=== PATIENT | female | born 1990 | race Caucasian/White ===

== ENCOUNTER 2023-05-14 09:33 | Outpatient (CLI) | payer OTHER, SELFPAY ==
[2023-05-14 20:14] LABS: Basophils Absolute Auto 0.1 K/mm3 (0.0-0.1); Basophils Percent Auto 0.8 % (0.2-1.2); Eosinophils Absolute Auto 0.3 K/mm3 (0-0.3); Eosinophils Percent Auto 3.2 % (0-4.4); Hematocrit 43.7 % (37.0-47.0); Hemoglobin 13.7 g/dL (12.0-15.0); Immature Granulocyte Absolute 0.06 K/mm3 (0.00-0.031); Immature Granulocyte Percent A 0.8 % (0-0.5); Lymphocytes Absolute Auto 2.22 K/mm3 (0.9-3.2); Lymphocytes Percent Auto 28.1 % (18.3-44.2); Mean Corpuscular HGB Conc 31.4 g/dl (32-36); Mean Corpuscular Volume 95.8 fl (80-100); Mean Platelet Volume 12.2 fl (7.4-10.4); Monocytes Absolute Auto 0.6 K/mm3 (0.1-0.6); Neutrophils Absolute Auto 4.8 K/mm3 (1.3-6.7); Neutrophils Percent Auto 60.1 % (45.5-73.1); Platelet Count Result 246 k/mm3 (150-375); Red Blood Count 4.56 M/mm3 (4.2-5.4); White Blood Count 7.9 K/mm3 (4.5-10.0)
[2023-05-14 20:28] LABS: Alanine Aminotransferase 23 U/L (6-35); Albumin Level 4.6 g/dL (3.5-5.1); Alkaline Phosphatase 75 U/L (38-126); Anion Gap 8 mmol/L (8-16); Aspartate Amino Transferase 41 U/L (14-36); Bilirubin,Total 0.7 mg/dL (0.2-1.3); Blood Urea Nitrogen 21 mg/dL (7-17); Calcium 9.5 mg/dL (8.4-10.2); Carbon Dioxide 25 mmol/L (22-30); Chloride 105 mmol/L (98-107); Cholesterol 204 mg/dL (0-200); Estimated Glomerular Filt Rate > 60; Glucose 83 mg/dL (65-110); HDL Direct 50 mg/dL; Potassium 4.5 mmol/L (3.4-5.0); Sodium 138 mmol/L (137-145); Triglycerides 110 mg/dL (<150)
[2023-05-14 20:39] LABS: LDL Cholesterol Direct 110 mg/dL; Vitamin D 25 Hydroxy 43.5 ng/mL
[2023-05-16 13:32] LABS: DHEA-Sulfate 91 mcg/dL (23-266)
[2023-05-17 14:25] LABS: Progesterone 11.5 ng/mL (***)
[2023-05-17 19:24] LABS: Testosterone Free 2.6 pg/mL (0.1-6.4); Testosterone Total 17 ng/dL (2-45)
[2023-05-21 21:57] LABS: Estradiol, Ultrasensitive 72 pg/mL
== END 2023-05-14 09:34 | disposition home or self-care (01) ==
LOC: ANHBWCLAB 09:34
PROVIDERS: PCP Family Medicine; Visit Provider Family Medicine
DX: E03.9 Hypothyroidism, unspecified (principal); E66.9 Obesity, unspecified; F41.1 Generalized anxiety disorder; R68.82 Decreased libido; Z00.00 Encounter for general adult medical examination without abnormal findings; L65.9 Nonscarring hair loss, unspecified
CPT/HCPCS: 36415; 80053; 80061; 82306; 82627; 82670; 84144; 84402; 84403; 85025

== ENCOUNTER 2023-06-22 09:44 | Outpatient (CLI) | payer OTHER, SELFPAY ==
[2023-06-22 19:52] LABS: Alanine Aminotransferase 23 U/L (6-35); Albumin Level 4.3 g/dL (3.5-5.1); Alkaline Phosphatase 92 U/L (38-126); Aspartate Amino Transferase 66 U/L (14-36); Bilirubin,Total 0.7 mg/dL (0.2-1.3)
[2023-06-22 20:20] LABS: Hepatitis B Surface Antigen Negative (Negative)
[2023-06-22 20:26] LABS: HAV RESULT Negative (Negative); Hepatitis B Core IgM Result Negative (Negative)
[2023-06-22 20:38] LABS: Hepatitis C Virus Antibody Negative (Negative)
== END 2023-06-22 09:45 | disposition home or self-care (01) ==
LOC: ANHBWCLAB 09:45
PROVIDERS: PCP Family Medicine; Visit Provider Family Medicine
DX: R74.01 Elevation of levels of liver transaminase levels (principal)
CPT/HCPCS: 36415; 80074; 80076

== ENCOUNTER 2023-10-08 13:33 | Outpatient (CLI) | payer OTHER, SELFPAY | END 2023-10-08 13:34 | disposition home or self-care (01) | PROVIDERS: PCP Nurse Practitioner Adult Health; Visit Provider Family Medicine | DX: E03.9 Hypothyroidism, unspecified (principal) | CPT/HCPCS: 36415; 84443 ==

== ENCOUNTER 2025-01-06 11:50 | Outpatient (CLI) | payer OTHER, SELFPAY ==
[2025-01-06 20:19] LABS: Thyroid Stimulating Hormone 0.256 uIU/mL (0.465-4.680)
== END 2025-01-06 11:51 | disposition home or self-care (01) ==
LOC: ANHBWCLAB 11:51
PROVIDERS: PCP Nurse Practitioner Adult Health; Visit Provider Nurse Practitioner Adult Health
DX: E03.9 Hypothyroidism, unspecified (principal)
CPT/HCPCS: 36415; 84443

== ENCOUNTER 2025-03-04 13:34 | Outpatient (CLI) | payer OTHER, SELFPAY ==
--- OUTSIDE RECORDS SUMMARY | 2025-03-04 13:57 | XMS_ITS | Clinical Summary ---
Author Organization [facility] Address [address] [place] [address] Care Team Providers Care Dish Network Installer Name Role Phone Shubham Prescott MD Primary Care Provider [phone]- [phone] Source Comments [facility] [email or web address],non-owned Affiliates and Associated Physician Practices is amultiple site organization consisting of ambulatory clinics and hospital sitesin [place], [place], [place] and [place]. This disclosure is being madepursuant to the Care Everywhere program and may not contain all information available regarding this patient. Last updated 18.[facility] [email or web address] Allergies No known active allergies Medications * Be aware that medications may not be up to date on this document. Alwaysverify current medications with the patient. LEVOTHYROXINE SODIUM PO Active norethin-eth estradiol-FE (08/04) 1-20 MG-MCG tablet Take 1 tablet by mouth once daily Active Active Problems No known active problems Immunizations Immunization Administration Dates Next Due TDAP (7yrs+) 03/29/2016 Family History Medical History Relation Name Comments Diabetes Father Diabetes Paternal Grandmother Relation Name Status Comments Father Alive Maternal Grandfather Maternal Grandmother Alive Mother Alive Paternal Grandfather Alive Paternal Grandmother Alive Sister Alive Social History Tobacco Use Types Packs/Day Years Used Date Smoking Tobacco: Never Smokeless Tobacco: Never Alcohol Use Standard Drinks/Week Comments Yes 0 (1 standard drink = 0.6 oz pur e alcohol) ocass Comments No Sex and Gender Information Value Date Recorded Sex Assigned at Not on file 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 Gender Identity Not on file Sexual Orientation Not on file Occupation Industry Job Start Date Job End Date [employer] Not on file Not on file Not on f ile Last Filed Vital Signs Vital Sign Reading Time Taken Comments Blood Pressure 114/70 01/12/2021 12:19 PM CDT Pulse 74 01/12/2021 12:19 PM CDT Temperature 37 C (98.6 F) 01/12/2021 12:19 PM CDT Respiratory Rate 16 01/12/2021 12:19 PM CDT Oxygen Saturation 97% 01/12/2021 12:19 PM CDT Inhaled Oxygen Concentration - - Weight 74.8 kg (165 lb) 01/12/2021 12:19 PM CDT Height 154.9 cm (5' 1) 01/12/2021 12:19 PM CDT Body Mass Index 31.18 01/12/2021 12:19 PM CDT Plan of Treatment Health Maintenance Due Date Last Done Comments HIV SCREENING 2004 HEPATITIS C SCREENING 11/12/2007 HEPATITIS B VACCINE (1 of 3 - 19+ 3-dose series) 2008 HPV VACCINE (1 - 3-dose SCDM series) 2016 COVID-19 VACCINE (1 - 2023-2 5 season) 2024 DEPRESSION SCREENING 07/16/2024 INFLUENZA VACCINE (#1) 2025 DTAP/TDAP/TD VACCINES (2 - T d or Tdap) 03/29/2026 03/29/2016 ZOSTER VACCINE (1 of 2) 11/17/2039 HIB VACCINE Aged Out No longer eligi ble based on patient's age to complete this topic MENINGOCOCCAL (Group B) VACC INE SHARED DECISION-MAKING Aged Out No longer eligibl e based on patient's age to complete this topic MENINGOCOCCAL GROUPS A/C/Y/W VACCINE Aged Out No longer eligible b ased on patient's age to complete this topic PNEUMOCOCCAL VACCINE Aged Out No long er eligible based on patient's age to complete this topic Insurance [facility] Care Teams Dish Network Installer Relationship Specialty Start Date End Date Shubham Prescott MD [address] [place] [id number] PCP - General Family Medicine 01/12/21
--- OUTSIDE RECORDS SUMMARY | 2025-03-04 13:57 | XMS_ITS | Clinical Summary ---
Author Organization [facility] [place] [address] [facility] [address] Address [address] [place] [address] Care Team Providers Care Electromechanical Assembler Name Role Phone Reece Olivera MD Primary Care Provider [phone] [phone] Allergies No known active allergies Medications levothyroxine (SYNTHROID) 137 mcg tablet Take 1 tablet (137 mcg total) by mouth daily 05/02/2023 Active Active Problems No known active problems Surgical History Surgery Date Site/Laterality Comments NO PAST SURGERIES Medical History Medical History Date Comments Thyroid disease Social History Tobacco Use Types Packs/Day Years Used Date Smoking Tobacco: Never Assessed Comments No Sex and Gender Information Value Date Recorded Sex Assigned at Not on file Legal Sex Female 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 Gender Identity Not on file Sexual Orientation Not on file Obstetrics History Last Filed Vital Signs Vital Sign Reading Time Taken Comments Blood Pressure 106/62 06/09/2024 9:47 AM SELF SEALING FUEL TANK REPAIRER Pulse 96 06/09/2024 9:47 AM SELF SEALING FUEL TANK REPAIRER Temperature 36.8 C (98.2 F) 06/09/2024 9:47 AM SELF SEALING FUEL TANK REPAIRER Respiratory Rate 19 06/09/2024 9:47 AM SELF SEALING FUEL TANK REPAIRER Oxygen Saturation 97% 06/09/2024 9:47 AM SELF SEALING FUEL TANK REPAIRER Inhaled Oxygen Concentration - - Weight 83.2 kg (183 lb 6.4 oz) 06/09/2024 9:47 A M SELF SEALING FUEL TANK REPAIRER Height 154.9 cm (5' 1) 06/09/2024 9:47 AM SELF SEALING FUEL TANK REPAIRER Body Mass Index 34.65 06/09/2024 9:47 AM SELF SEALING FUEL TANK REPAIRER Plan of Treatment Health Maintenance Due Date Last Done Comments Cervical Cancer Screening 1989 Depression Screening 1989 Hepatitis C Screening 1989 Varicella Vaccines (1 of 2 - 13+ 2-dose series) 2002 Hepatitis B Screening 11/17/2007 Regular Well Visit/Exam 18-64 11/17/2007 HPV Vaccines (1 - 3-dose SCD M series) 2016 Influenza Vaccine (#1) 2025 DTaP/Tdap/Td Vaccine (2 - Td or Tdap) 03/29/2026 03/29/2016, 05/02/2005 Pneumococcal vaccine <65 Aged Out No longer eligible based on patient's age to complete this topic Insurance [facility] Care Teams Electromechanical Assembler Relationship Specialty Start Date End Date Reece Olivera MD PCP - General Family Practice 06/20/23
[2025-03-04 19:36] LABS: Thyroid Stimulating Hormone 1.510 uIU/mL (0.465-4.680)
== END 2025-03-04 13:35 | disposition home or self-care (01) ==
LOC: ANHBWCLAB 13:35
PROVIDERS: PCP Nurse Practitioner Adult Health; Visit Provider Nurse Practitioner Adult Health
DX: E03.9 Hypothyroidism, unspecified (principal)
CPT/HCPCS: 36415; 84443

== ENCOUNTER 2025-04-28 09:26 | Outpatient (CLI) | payer OTHER, SELFPAY ==
--- OUTSIDE RECORDS SUMMARY | 2025-04-28 10:36 | XMS_ITS | Clinical Summary ---
Author Organization [facility] Address [address] [address] [facility] [place] [address] Care Team Providers Care Turbine Assembler Name Role Phone Shubham Prescott MD Primary Care Provider [phone]- [phone] Source Comments [facility] [employer],non-owned Affiliates and Associated Physician Practices is amultiple site organization consisting of ambulatory clinics and hospital sitesin [place], [place], [place] and [place]. This disclosure is being madepursuant to the Care Everywhere program and may not contain all information available regarding this patient. 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 Care Teams Turbine Assembler Relationship Specialty Start Date End Date Shubham Prescott MD [address] [place] [phone] PCP - General Family Medicine 01/12/21
--- OUTSIDE RECORDS SUMMARY | 2025-04-28 10:36 | XMS_ITS | Clinical Summary ---
Author Organization [facility] [address] [facility] lt Address [address] [place] [address] Care Team Providers Care Joinery Machinist Name Role Phone Reece Olivera MD Primary Care Provider [phone] Allergies No known active allergies Medications levothyroxine [...] on file Legal Sex Female 12:19 PM RESTAURANT ATTENDANT Gender Identity Not on file Sexual Orientation Not on file Obstetrics History Last Filed Vital Signs Vital Sign Reading Time Taken Comments Blood Pressure 106/62 06/09/2024 9:47 AM RESTAURANT ATTENDANT Pulse 96 06/09/2024 9:47 AM RESTAURANT ATTENDANT Temperature 36.8 C (98.2 F) 06/09/2024 9:47 AM RESTAURANT ATTENDANT Respiratory Rate 19 06/09/2024 9:47 AM RESTAURANT ATTENDANT Oxygen Saturation 97% 06/09/2024 9:47 AM RESTAURANT ATTENDANT Inhaled Oxygen Concentration - - Weight 83.2 kg (183 lb 6.4 oz) 06/09/2024 9:47 A M RESTAURANT ATTENDANT Height 154.9 cm (5' 1) 06/09/2024 9:47 AM RESTAURANT ATTENDANT Body Mass Index 34.65 06/09/2024 9:47 AM RESTAURANT ATTENDANT Plan of Treatment Health Maintenance Due Date [...] patient's age to complete this topic Insurance [facility] Care Teams Joinery Machinist Relationship Specialty Start Date End Date Reece Olivera MD PCP - General Family Practice 06/20/23
[2025-04-28 18:52] LABS: Hematocrit 41.2 % (37.0-47.0); Hemoglobin 13.3 g/dL (12.0-15.0); Mean Corpuscular HGB Conc 32.3 g/dl (32-36); Mean Corpuscular Hemoglobin 30.4 pg (26-34); Mean Corpuscular Volume 94.1 fl (80-100); Platelet Count Result 270 k/mm3 (150-375); Red Blood Count 4.38 M/mm3 (4.2-5.4); White Blood Count 9.2 K/mm3 (4.5-10.0)
[2025-04-28 19:08] LABS: Alanine Aminotransferase 16 U/L (6-35); Albumin Level 4.2 g/dL (3.5-5.1); Alkaline Phosphatase 74 U/L (38-126); Anion Gap 6 mmol/L (4-12); Aspartate Amino Transferase 68 U/L (14-36); Bilirubin,Total 0.8 mg/dL (0.2-1.3); Blood Urea Nitrogen 20 mg/dL (7-17); Calcium 8.9 mg/dL (8.4-10.2); Carbon Dioxide 28 mmol/L (22-30); Chloride 103 mmol/L (98-107); Cholesterol 172 mg/dL (0-200); Estimated Glomerular Filt Rate > 60; Glucose 84 mg/dL (65-110); HDL Direct 39 mg/dL; Potassium 4.6 mmol/L (3.4-5.0); Sodium 137 mmol/L (137-145); Total Protein 7.4 g/dL (6.3-8.2); Triglycerides 103 mg/dL (<150)
[2025-04-28 19:43] LABS: Thyroid Stimulating Hormone 2.380 uIU/mL (0.465-4.680)
== END 2025-04-28 09:27 | disposition home or self-care (01) ==
PROVIDERS: PCP Nurse Practitioner Adult Health; Visit Provider Nurse Practitioner Adult Health
DX: Z00.00 Encounter for general adult medical examination without abnormal findings (principal)
CPT/HCPCS: 36415; 80053; 80061; 84443; 85027